=== PATIENT | female | born 1960 | race Caucasian/White ===

== ENCOUNTER → 2017-02-16 | Outpatient (CLI) | payer BC ==
--- NOTE | 2017-02-23 10:07 | MM ---
Reason for exam: screening (asymptomatic). Last mammogram was performed 8 years and 3 months ago. History: Patient is postmenopausal and history of other cancer. Family history of breast cancer in mother at age 71. Cyst aspiration of the left breast, August 28, 2004. Benign ultrasound-guided core biopsy of the left breast, August 28, 2004. Core biopsy of the left breast. Physical Findings: A clinical breast exam by your physician is recommended on an annual basis and results should be correlated with mammographic findings. MG 3D Screening Mammo W/Cad Bilateral CC and MLO view(s) were taken. Prior study comparison: November 21, 2008, mammogram, performed at [facility]. The breast tissue is heterogeneously dense. This may lower the sensitivity of mammography. Finding: There are intermediate concern, suspicious punctate, segmental calcifications in the upper outer quadrant, posterior position of the left breast 8cm from the nipple. New finding since November 21, 2008. ASSESSMENT: Incomplete: need additional imaging evaluation, BI-RAD 0 RECOMMENDATION: Special view mammogram of the left breast. [facility] will attempt to contact patient to return for supplemental views.
== END | disposition home or self-care (01) ==
LOC: RADMAMWWP 12:21
PROVIDERS: ATTEND Family Medicine
DX: Z12.31 Encounter for screening mammogram for malignant neoplasm of breast (principal)
CPT/HCPCS: 77063; G0202

== ENCOUNTER → 2017-03-02 | Outpatient (CLI) | payer BC ==
--- NOTE | 2017-03-02 14:31 | MM ---
Reason for exam: additional evaluation requested from abnormal screening. Last mammogram was performed less than 1 month ago. History: Patient is postmenopausal and history of other cancer. Family history of breast cancer in mother at age 71. Cyst aspiration of the left breast, August 28, 2004. Benign ultrasound-guided core biopsy of the left breast, August 28, 2004. Core biopsy of the left breast. Physical Findings: Nurse did not find any significant physical abnormalities on exam. MG 3D Work Up W/Cad LT ML, ML with magnification, and CC with magnification view(s) were taken of the left breast. Prior study comparison: February 16, 2017, bilateral MG 3d screening mammo w/cad. November 21, 2008, mammogram, performed at [facility]. The breast tissue is heterogeneously dense. This may lower the sensitivity of mammography. Grouped calcifications upper outer quadrant redemonstrated. Some of these still layer compatible with benign milk of calcium. Other appear round/punctate and are different from 2008. 6 month follow up recommended. These results were verbally communicated with the patient and result sheet given to the patient on 03/02/17. ASSESSMENT: Probably benign, BI-RAD 3 RECOMMENDATION: Follow-up diagnostic mammogram of the left breast in 6 months.
== END | disposition home or self-care (01) ==
LOC: RADMAMWWP 13:39
PROVIDERS: ATTEND Family Medicine
DX: R92.8 Other abnormal and inconclusive findings on diagnostic imaging of breast (principal)
CPT/HCPCS: G0206; G0279

== ENCOUNTER → 2018-03-15 | Outpatient (CLI) | payer BC ==
--- NOTE | 2018-03-16 11:53 | MM ---
Reason for exam: screening (asymptomatic). Last mammogram was performed 1 year ago. History: Patient is postmenopausal and history of other cancer. Family history of breast cancer in mother at age 71. Cyst aspiration of the left breast, August 28, 2004. Benign ultrasound-guided core biopsy of the left breast, August 28, 2004. Core biopsy of the left breast. Physical Findings: A clinical breast exam by your physician is recommended on an annual basis and results should be correlated with mammographic findings. MG 3D Screening Mammo W/Cad Bilateral CC and MLO view(s) were taken. Prior study comparison: March 02, 2017, left breast MG 3d work up w/cad LT. February 16, 2017, bilateral MG 3d screening mammo w/cad. The breast tissue is heterogeneously dense. This may lower the sensitivity of mammography. Stable calcifications in the left breast. There is chronic nodularity bilaterally. ASSESSMENT: Benign, BI-RAD 2 RECOMMENDATION: Routine screening mammogram of both breasts in 1 year.
== END | disposition home or self-care (01) ==
LOC: RADMAMWWP 11:13
PROVIDERS: ATTEND Family Medicine
DX: Z12.31 Encounter for screening mammogram for malignant neoplasm of breast (principal)
CPT/HCPCS: 77063; 77067

== ENCOUNTER → 2019-06-13 | Outpatient (CLI) | payer BC ==
--- NOTE | 2019-06-15 07:33 | MM ---
Reason for exam: screening (asymptomatic). Last mammogram was performed 1 year and 3 months ago. History: Patient is postmenopausal and history of other cancer. Family history of breast cancer in mother at age 71. Cyst aspiration of the left breast, August 28, 2004. Benign ultrasound-guided core biopsy of the left breast, August 28, 2004. Core biopsy of the left breast. Physical Findings: A clinical breast exam by your physician is recommended on an annual basis and results should be correlated with mammographic findings. MG 3D Screening Mammo W/Cad Bilateral CC and MLO view(s) were taken. Prior study comparison: March 15, 2018, bilateral MG 3d screening mammo w/cad. March 02, 2017, left breast MG 3d work up w/cad LT. The breast tissue is heterogeneously dense. This may lower the sensitivity of mammography. Finding: There are segmental calcifications in the outer quadrant, middle position of the left breast, stable. No significant changes in finding since March 15, 2018 and March 02, 2017. ASSESSMENT: Benign, BI-RAD 2 RECOMMENDATION: Routine screening mammogram of both breasts in 1 year.
== END | disposition home or self-care (01) ==
LOC: RADMAMWWP 15:08
PROVIDERS: ATTEND Pediatrics
DX: Z12.31 Encounter for screening mammogram for malignant neoplasm of breast (principal)
CPT/HCPCS: 77063; 77067

== ENCOUNTER → 2021-11-11 | Outpatient (CLI) | payer BC ==
--- NOTE | 2021-11-12 16:24 | MM ---
Reason for Exam: Screening (asymptomatic). Last mammogram was performed 2 year(s) and 5 month(s) ago. Patient History: Menarche at age 9. First Full-Term at age 18. Postmenopausal. Other cancer. Core Biopsy on the Left side. 08/28/2004, Cyst Aspiration on the Left side. 08/28/2004, Benign Ultrasound-Guided Core Biopsy on the left side. Mother had breast cancer, age 71. Risk Values: Jaki 5 year model risk: 4.9%. NCI Lifetime model risk: 19.6%. Prior Study Comparison: 03/02/2017 Left Diagnostic Mammogram, [facility]. 03/15/2018 Bilateral Screening Mammogram, [facility]. 06/13/2019 Bilateral Screening Mammogram, [facility]. Tissue Density: The breast tissue is heterogeneously dense. This may lower the sensitivity of mammography. Findings: Analyzed By CAD. Complex pattern appears stable. Benign scattered calcifications are present. There is a grouping of calcifications may be increasing in the upper outer posterior aspect left breast. Additional evaluation of this area is recommended. Right breast appears stable. Overall Assessment: Incomplete: need additional imaging evaluation, BI-RAD 0 Management: Special View Mammogram of the left breast. A negative mammogram report should not preclude additional follow up of suspicious palpable abnormalities. Patient should continue monthly self breast exam. A clinical breast exam by your physician is recommended on an annual basis and results should be correlated with mammographic findings. Electronically signed and approved by: Luis Esteves D.O. Radiologis
== END | disposition home or self-care (01) ==
LOC: RADMAMWWP 14:58
PROVIDERS: ATTEND Pediatrics
DX: Z12.31 Encounter for screening mammogram for malignant neoplasm of breast (principal); Z78.0 Asymptomatic menopausal state; Z80.3 Family history of malignant neoplasm of breast
CPT/HCPCS: 77063; 77067

== ENCOUNTER → 2021-11-18 | Outpatient (CLI) | payer BC ==
--- NOTE | 2021-11-19 10:38 | MM ---
Reason for Exam: Additional evaluation requested from abnormal screening. Last screening mammogram was performed less than 1 month ago. Patient History: Menarche at age 9. First Full-Term at age 18. Postmenopausal. Other cancer. Core Biopsy on the Left side. 08/28/2004, Cyst Aspiration on the Left side. 08/28/2004, Benign Ultrasound-Guided Core Biopsy on the left side. Mother had breast cancer, age 71. Risk Values: Jaki 5 year model risk: 4.9%. NCI Lifetime model risk: 19.6%. Prior Study Comparison: 03/15/2018 Bilateral Screening Mammogram, [facility]. 06/13/2019 Bilateral Screening Mammogram, [facility]. 11/11/2021 Bilateral MG 3D screening mammo w/cad, [facility]. Tissue Density: Left: The breast tissue is heterogeneously dense. This may lower the sensitivity of mammography. Findings: Analyzed By CAD. There is a grouping of punctate and round calcifications in the upper outer aspect left breast. These are increasing in number from the 2019 examination. There may be a small rounded associated density at the punctate calcification level on the medial lateral view. Findings are considered suspicious. Stereotactic core biopsy is recommended. Overall Assessment: Suspicious, BI-RAD 4 Management: Stereotactic Core Biopsy of the left breast. A clinical breast exam by your physician is recommended on an annual basis and results should be correlated with mammographic findings. This exam should not preclude additional follow-up of suspicious palpable abnormalities. Results were given to the patient verbally at the time of exam. Electronically signed and approved by: Luis Esteves D.O. Radiologis
== END | disposition home or self-care (01) ==
LOC: RADMAMWWP 13:24
PROVIDERS: ATTEND Pediatrics
DX: R92.8 Other abnormal and inconclusive findings on diagnostic imaging of breast (principal); Z78.0 Asymptomatic menopausal state; Z80.3 Family history of malignant neoplasm of breast
CPT/HCPCS: 77061; 77065

== ENCOUNTER → 2021-12-02 | Day surgery (SDC) | payer BC ==
[2021-12-02 10:05] VITALS: RESP 12
[2021-12-02 10:54] VITALS: BP 147/84; PULSE 65; TEMP 98.4
--- NOTE | 2021-12-06 11:56 | MM ---
Risk Values: Jaki 5 year model risk: 4.9%. NCI Lifetime model risk: 19.6%. Prior Study Comparison: 06/13/2019 Bilateral Screening Mammogram, [facility]. 11/11/2021 Bilateral MG 3D screening mammo w/cad, [facility]. 11/18/2021 Left MG 3D work up w/cad , [facility]. Pathology Description: Location: upper outer quadrant. Approach: CC FA Cores: 11 Skin Nicks: 1 Gauge: 9 The procedure of stereotactic guided core biopsy was explained to the patient. Benefits, alternatives, and risks were discussed. An informed consent was then obtained. The short[facility]. I performed the localization, then surgeon, Dr. Dixon performed the remainder of the procedure. A vacuum assisted biopsy gun was used to obtain multiple core samples. The patient tolerated the procedure well without any immediate complication. The patient was kept in the radiology department for short stay after the procedure and then discharged home in stable condition. Targeted calcifications are identified in specimen mammogram. Post biopsy mammogram shows the clip to appear in satisfactory position relative to the targeted area of concern on the preprocedure images. Impression: SUCCESSFUL, UNCOMPLICATED STEREOTACTIC GUIDED CORE BIOPSY OF AREA OF CONCERN IN THE BREAST. Pathology Results: Result: Malignant, Invasive ductal carcinoma. 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 See Surgical Pathology Cancer Case Summary and Comment. Overall Assessment: Malignant Management: Surgical Consultation of the left breast. Electronically signed and approved by: Asif Dixon DO
== END ==
LOC: RADMAMWWP 09:39
PROVIDERS: ATTEND Pediatrics
DX: C50.912 Malignant neoplasm of unspecified site of left female breast (principal)
CPT/HCPCS: 88305; 88342; 88341; 19081; A4648; J2001

== ENCOUNTER 2022-01-27 10:39 | Observation (INO) | payer BC ==
[2022-01-24 10:19] VITALS: BMI 31.6
[~2022-01-27 10:39] MED LIST: DEXAMETHASONE SOD PHOSPHATE 4 MG/ML 1 ML VIAL IV ONE; HYDROmorphone 0.5 MG/0.5 ML SYRINGE IVP PRN; LACTATED RINGERS 1,000 ML IV SCH; MIDAZOLAM 2 MG/2 ML VIAL IV PRN; Pre Op ABX Message 1 EACH MISC MISCELLANE ONE
[2022-01-27] MEDS ORDERED: ALPRAZolam 0.25 MG TAB ONE (11:11)
[2022-01-27] MEDS ORDERED: ALPRAZolam 0.25 MG TAB PO ONE (11:17)
[2022-01-27] MEDS ORDERED: LIDOCAINE 1% INJ 10MG/ML (20 ML MDV) SQ ONE (12:26)
[2022-01-27] MEDS: ONDANSETRON 4 MG/2 ML VIAL IVP ONE ×2 (13:02→15:31)
[2022-01-27] MEDS ORDERED: PHENYLEPHRINE-0.9% NACL SYG 1,000 MCG/10 ML SYRINGE ONE (13:24)
[2022-01-27] MEDS ORDERED: HYDROmorphone (PF) 1 MG/ML ONE (13:24)
[2022-01-27] MEDS ORDERED: fentaNYL (PF) 50 MCG/ML 2 ML AMP ONE (13:24)
[2022-01-27] MEDS ORDERED: PROPOFOL 10 MG/ML 20 ML VIAL IV ONE (13:24)
[2022-01-27] MEDS ORDERED: LIDOCAINE 2% INJ 20 MG/ML (2 ML VIAL) ONE (13:24)
[2022-01-27] MEDS ORDERED: MIDAZOLAM 2 MG/2 ML VIAL ONE (13:24)
[2022-01-27] MEDS ORDERED: SUCCINYLCHOLINE CHLORIDE 200 MG/10 ML VIAL IV ONE (13:24)
[2022-01-27] MEDS ORDERED: SODIUM CHLORIDE 0.9% 50 ML with ceFAZolin 2,000 MG IV ONE ×2 (13:28)
--- NOTE | 2022-01-27 13:31 | P.HPADDEND ---
H&P Addendum H&P Addendum Date: 01/27/22 Frozen section on sentinel lymph node is not available. I told the patient and her family that may necessitate coming back at her later date if there is any significant metastatic disease seen in the lymph node final pathology. Questions were encouraged and answered.
[2022-01-27] MEDS ORDERED: BUPIVACAINE (PF) 0.5% 30 ML VIAL SQ ONE ×2 (13:55)
[2022-01-27] MEDS ORDERED: LIDOCAINE 1%-EPI 1:100,000 20 ML VIAL SQ ONE ×2 (13:55)
--- NOTE | 2022-01-27 14:15 | NM ---
EXAMINATION TYPE: NM sentinel node injection DATE OF EXAM: 01/27/2022 COMPARISON: NONE HISTORY: Left breast invasive ductal carcinoma TECHNIQUE AND FINDINGS: The procedure of sentinel lymph node injection was explained to the patient. The benefits, alternatives, and risks were discussed. An informed consent was then obtained. Overlying skin is cleaned with sterile alcohol. Following this, 515 uCi Tc99m Tilmanocept was inject ed in the upper outer aspect of the left nipple intradermally. The patient tolerated the procedure well without any immediate complication. The patient was kept in the radiology department for short stay after the procedure and then taken to surgery for surgical p rocedure what is presumed intraoperative gamma probe will be used for sentinel lymph node detection. IMPRESSION: Left breast radiotracer injection for sentinel node localization as above.
--- NOTE | 2022-01-27 15:00 | P.OP ---
Date of Procedure: 01/27/22 Preoperative Diagnosis: Left breast cancer Postoperative Diagnosis: Left breast cancer Procedure(s) Performed: Needle localized lumpectomy with sentinel node biopsy Anesthesia: AMBER Surgeon: Nereida Howell Estimated Blood Loss (ml): 10 Pathology: other Condition: stable Disposition: PACU Indications for Procedure: Patient had outpatient workup showing a small breast cancer and left breast Description of Procedure: Patient's taken the operative suite where she is prepped and draped in the usual sterile manner under general endotracheal anesthetic. Local anesthetic was instilled in the skin and subcutaneous tissue and left axilla. A navigator probe was then used to scan the axilla, this showed counts of about 10-15 at skin level. Dissection was carried down to to the sentinel lymph node in this is dissected free. This showed an in vivo count about 120 an ex vivo count of 499. The axilla is rescanned and the counts were only about 10-12 in the deep axilla. Axilla is palpated and unremarkable. The specimen is sent for pathology. The skin was closed with 4-0 Vicryl in a subcuticular manner. A towel was placed over this area. Local anesthetic was then instilled into the skin and subcutaneous tissue of the breast. A skin incision was made. Dissection was carried down of the guidewire and this was brought through the incision. Tissue around the end of the guidewire was then sharply excised. The specimen was tagged and sent for specimen mammography. The specimen mammography showed the area of concern removed. The breast tissue had some denser tissue present but was otherwise unremarkable. Small bleeding points were controlled with electrocautery or 3-0 Vicryl stick ties. The lumpectomy cavity was marked with ligaclips. The skin was then closed with 4-0 Vicryl in a subcuticular manner. Steri-Strips and dressings were applied. She tolerated the procedure without difficulty and was taken recovery room in satisfactory condition. According to or personnel, all counts were correct. Plan - Discharge Summary Discharge Rx Participant: No New Discharge Prescriptions: New traMADol HCl [Ultram] 1 - 2 mg PO Q4HR PRN #20 tab PRN Reason: Pain No Action Ibuprofen [Motrin] 800 mg PO Q8H PRN PRN Reason: Pain Omeprazole 20 mg PO QAM amLODIPine 10 mg PO QAM Acetaminophen [Tylenol Extra Strength] 500 mg PO DIRECTED PRN PRN Reason: Pain Loratadine [Claritin] 10 mg PO DAILY Discharge Medication List Ibuprofen [Motrin] 800 mg PO Q8H PRN 11/20/21 [History] amLODIPine 10 mg PO QAM 11/20/21 [History] Omeprazole 20 mg PO QAM 12/02/21 [History] Acetaminophen [Tylenol Extra Strength] 500 mg PO DIRECTED PRN 01/24/22 [History] Loratadine [Claritin] 10 mg PO DAILY 01/24/22 [History] traMADol HCl [Ultram] 1 - 2 mg PO Q4HR PRN #20 tab 01/27/22 [Rx] Activity/Diet/Wound Care/Special Instructions: Ice to the incision for 24 hours. Wear a well supporting bra. Leave the dressings on until Thursday, then they may be removed any may shower. Expect some bruising. Call if questions or concerns. Discharge Disposition: HOME SELF-CARE
[2022-01-27] MEDS ORDERED: CITRIC ACID-SODIUM CITRATE 15 ML CUP PO ONE (15:25)
[2022-01-27] MEDS ORDERED: ONDANSETRON 4 MG/2 ML VIAL ONE (16:42)
[2022-01-27] MEDS ORDERED: SCOPOLAMINE 1 MG/72 HR PATCH TRANSDERM ONE (17:00)
[2022-01-27] MEDS ORDERED: LACTATED RINGERS 1,000 ML IV ONE (17:00)
[2022-01-27] MEDS ORDERED: ACETAMINOPHEN TAB 500 MG TAB PO PRN (18:17)
[2022-01-27] MEDS ORDERED: traMADol 50 MG TAB PO PRN (18:25)
[2022-01-27] MEDS ORDERED: SODIUM CHLORIDE 0.9% 1,000 ML IV SCH (18:30)
[2022-01-27] MEDS ORDERED: METOCLOPRAMIDE 5 MG/ML 2 ML VIAL IVP PRN (19:23)
--- NOTE | 2022-01-27 19:25 | P.PN ---
Progress Note - Text Progress Note Date: 01/27/22 The patient was experiencing postop nausea and vomiting so will be kept overnight and treated
[2022-01-27] MEDS ORDERED: ONDANSETRON 4 MG/2 ML VIAL IVP PRN (21:31)
[2022-01-27] MEDS: PANTOPRAZOLE 40 MG/10 ML VIAL IVP SCH (21:48)
[2022-01-28] MEDS: PANTOPRAZOLE 40 MG/10 ML VIAL IVP SCH (08:21)
[2022-01-28 08:53] VITALS: BP 136/83; PULSE 105; RESP 17; TEMP 97.5
[2022-01-28] MEDS ORDERED: amLODIPine 10 MG TAB PO SCH (09:00)
== END 2022-01-28 14:30 | disposition home or self-care (01) ==
LOC: OR 10:39 → 5NMEDONC 14:38 → 4FBP 22:24 → OR 01-28 09:44
PROVIDERS: ADMIT Surgery; ATTEND Surgery
DX: C50.412 Malignant neoplasm of upper-outer quadrant of left female breast (principal); R11.2 Nausea with vomiting, unspecified
CPT/HCPCS: 19301; 38525; 88342; 88307; 88341; 76098; 19281; 38792; G0378; C1819; A9520; J2250; J0330; J1100; J2405; J0690; J2001 ×2; J3010; J1170 ×2; J2370; J2704; C9113; J1790

== ENCOUNTER → 2023-11-04 | Outpatient (CLI) | payer BC ==
--- NOTE | 2023-11-04 13:18 | US ---
EXAMINATION TYPE: US abdomen complete DATE OF EXAM: 11/04/2023 COMPARISON: NONE CLINICAL INDICATION: Female, 63 years old with history of R14.0 BLOATING; bloating TECHNIQUE: Multiple sonographic images of the abdomen are obtained. FINDINGS: EXAM MEASUREMENTS: Liver Length: 13.5 cm Gallbladder Wall: Surgically absent CBD: 0.8 cm Spleen: 8.1 cm Right Kidney: 9.2 x 5.5 x 4.1 cm Left Kidney: 11.1 x 4.0 x 5.5 cm CASH TELLER NOTES: Pancreas: wnl Liver: left lobe cyst measuring 1.4 x 1.3 x 0.9cm Gallbladder: Surgically absent CBD: wnl Spleen: wnl Right Kidney: wnl Left Kidney: Cyst seen in the inf pole measuring 6.2 x 5.8 x 4.8cm Upper IVC: wnl Abd Aorta: wnl The liver is homogenous with a left hepatic lobe simple 1.4 cm cyst. Noncirrhotic morphology. The in trahepatic portion of the IVC and proximal abdominal aorta are within normal limits. Common bile duct is within normal limits postcholecystectomy. The visualized portions of the pancreas are homogenous. The spleen is unremarkable. Kidneys are symmetric and free of hydronephrosis. Corticomedullary dif ferentiation is maintained bilaterally. Left inferior pole 6.2 cm simple renal cyst. IMPRESSION: 1. No ultrasound evidence for acute process. 2. Post cholecystectomy changes. 3. Hepatic and left renal simple cysts.
--- NOTE | 2023-11-04 13:19 | US ---
EXAMINATION TYPE: US transvaginal DATE OF EXAM: 11/04/2023 COMPARISON: NONE CLINICAL INDICATION: Female, 63 years old with history of R14.0 BLOATING; bloating. TECHNIQUE: Transvaginal (TV). Date of LMP: Over 16 years ago EXAM MEASUREMENTS: Uterus: 3.5 x 3.8 x 2.2 cm Endometrial Stripe: 0.4 cm Right Ovary: Not seen Left Ovary: Not seen 1. Uterus: Retroverted wnl 2. Endometrium: wnl 3. Right Ovary: Not seen due to atrophy and bowel gas 4. Left Ovary: Not seen due to atrophy and bowel gas 5. Bilateral Adnexa: wnl 6. Posterior cul-de-sac: wnl Retroverted heterogenous uterus with normal endometrium. No focal lesion. Both ovaries are not visual ized due to atrophy and overlying bowel gas. No free fluid. IMPRESSION: No ultrasound evidence for acute process.
--- NOTE | 2023-11-04 13:33 | MM ---
Reason for Exam: Hx of breast cancer, conservation therapy. Last mammogram was performed 1 year(s) and 11 month(s) ago. Patient History: Menarche at age 9. First Full-Term at age 18. Postmenopausal. Breast cancer, left, age 61. Previous chest radiation therapy. 01/27/2022, Lumpectomy on the Left side. 01/27/2022, Malignant MG pre op needle loc LT on the left side. 12/02/2021, Malignant MG stereo VAD BX LT on the left side. Core Biopsy on the Left side. 08/28/2004, Cyst Aspiration on the Left side. 08/28/2004, Benign Ultrasound-Guided Core Biopsy on the left side. 2021, Radiation Therapy on the left side. Mother had breast cancer, age 71. Prior Study Comparison: 08/28/2004 Left Diagnostic Ultrasound, [facility]. 11/21/2008 Screening Mammogram, . 02/16/2017 Bilateral Screening Mammogram, [facility]. 03/02/2017 Left Diagnostic Mammogram, [facility]. 03/15/2018 Bilateral Screening Mammogram, [facility]. 06/13/2019 Bilateral Screening Mammogram, [facility]. 11/11/2021 Bilateral MG 3D screening mammo w/cad, [facility]. 11/18/2021 Left MG 3D work up w/cad LT, [facility]. Tissue Density: The breasts are heterogeneously dense, which may obscure small masses. Findings: Analyzed By CAD. Improved lumpectomy changes left breast. No evidence for recurrent suspicious microcalcifications or new cluster of microcalcifications. No evidence for mass or distortion. Overall Assessment: Benign, BI-RAD 2 Management: Diagnostic Mammogram of both breasts in 1 year. . Results were given to the patient verbally at the time of exam. Patient should continue monthly self-breast exams. A clinical breast exam by your physician is recommended on an annual basis. This exam should not preclude additional follow-up of suspicious palpable abnormalities. Note on Jaki scores and lifetime risk: 1. A Jaki score greater than 3% is considered moderate risk. If this is the case, consider specialist referral to assess eligibility for a risk reducing agent. 2. If overall lifetime risk for the development of breast cancer is 20% or higher, the patient may qualify for future screening with alternating mammogram and breast MRI. Electronically signed and approved by: Galindo Nowak M.D. Radiologis
== END | disposition home or self-care (01) ==
LOC: RADUSWWP 12:11
PROVIDERS: ATTEND Pediatrics
DX: C50.919 Malignant neoplasm of unspecified site of unspecified female breast (principal); N28.1 Cyst of kidney, acquired; R14.0 Abdominal distension (gaseous); R92.333 Mammographic heterogeneous density, bilateral breasts; Z90.49 Acquired absence of other specified parts of digestive tract; Z78.0 Asymptomatic menopausal state; Z80.3 Family history of malignant neoplasm of breast
CPT/HCPCS: 76700; 76830; 77062; 77066